=== PATIENT | male | born 1975 | race African-American/Black ===

== ENCOUNTER 2025-06-30 13:00 | Emergency (ER) | payer BC, SELFPAY ==
[2025-06-30] MEDS ORDERED: NA CHLORIDE 0.9% 1,000 ML ONE (13:10)
[2025-06-30 13:24] LABS: Absolute Lymphocytes (CBC) 1.8 K/uL (0.7-4.9); Hematocrit 43.1 % (39.6-49.0); Hemoglobin 14.3 g/dL (13.6-17.9); MCH 25.5 pg (27.0-35.0); MCHC 33.3 g/dL (32.0-36.0); MCV 76.7 fL (80-100); MPV 8.0 fL (7.6-11.3); Nucleated RBC Absolute Count 0.0 (0-0); Nucleated Red Blood Cells % 0.1 % (0-0); RBC Red Blood Cell Count 5.62 M/uL (4.33-5.43); White Blood Count 5.10 thou/uL (4.3-10.9)
[2025-06-30 13:47] LABS: ALT/SGPT 33 U/L (16-61); AST/SGOT 16 U/L (15-37); Albumin 4.0 g/dL (3.4-5.0); Albumin/Globulin Ratio 1.1 (1.1-1.8); Alkaline Phosphatase 42 U/L (45-117); Anion Gap 7.9 mEq/L (5.0-15.0); BUN Blood Urea Nitrogen 18 mg/dL (7-18); Globulin 3.7 g/dL (2.3-3.5); Glucose Level 147 mg/dL (74-106); Magnesium 2.2 mg/dL (1.6-2.4); NT PRO-BNP 28 pg/mL (<125); Potassium 3.9 mEq/L (3.5-5.1); Troponin High Sensitivity 9.6 pg/mL (<58.9)
[2025-06-30 13:48] LABS: Bilirubin Indirect, Calculated 0.1 mg/dL (0.2-0.8)
--- NOTE | 2025-06-30 13:50 | RAD REPORT ---
EXAMINATION: ONE VIEW CHEST XR CLINICAL INDICATION: syncope TECHNIQUE: Frontal chest projection is submitted. Examination is limited by patient positioning and t echnique. COMPARISON: No prior exam. FINDINGS: The lungs are mildly emphysematous but clear. The heart is upper limit of normal in size. No displace d fractures identified. IMPRESSION: No acute intrathoracic abnormalities.
--- NOTE | 2025-06-30 14:21 | EDPHYS ---
Physician Documentation [facility] Name: You Baird Age: 50 yrs Sex: Male : 1975 Arrival Date: 06/30/2025 Time: 13:00 Bed 3 Private MD: ED Physician Jorgito Diaz HPI: 06/30 13:42 Chief Complaint: Passed out during blood draw. History of Present Illness: The patient jr11 passed out while having blood drawn at a doctor's office. This was during a routine blood work procedure. The patient did not fall or hit their head, and they have never experienced passing out before. They had not eaten prior to the appointment but did drink a little water. The patient is currently feeling fine and has never felt like passing out during previous blood draws. Review of Systems: - Positive: Passed out during blood draw. - Negative: No head injury, no prior episodes of syncope, no feeling of fainting during previous blood draws. - ROS otherwise negative. . Historical: - Allergies: 13:07 No Known Allergies; nh2 - Home Meds: 13:07 None [Active]; nh2 - PMHx: 13:07 None; nh2 - PSHx: 13:07 None; nh2 - Immunization history:: Adult Immunizations up to date. - Infectious Disease History:: Denies. - Social history:: Smoking status: Patient denies any tobacco usage or history of. Patient/guardian denies using tobacco products. Exam: 13:42 Constitutional: This is a well developed, well nourished patient who is awake, alert, jr11 and in no acute distress. Head/Face: Normocephalic, atraumatic. Eyes: Extra-ocular motions intact. Lids and lashes normal. Conjunctiva and sclera are non-icteric and not injected. Cornea within normal limits. Periorbital areas with no swelling, redness, or edema. Neck: Trachea midline, no thyromegaly or masses palpated, and no cervical lymphadenopathy. Supple, full range of motion without nuchal rigidity, or vertebral point tenderness. No Meningismus. Chest/axilla: Normal chest wall appearance and motion. Nontender with no deformity. No lesions are appreciated. Cardiovascular: Regular rate and rhythm with a normal S1 and S2. No gallops, murmurs, or rubs. Normal PMI, no JVD. No pulse deficits. Respiratory: Lungs have equal breath sounds bilaterally, clear to auscultation and percussion. No rales, rhonchi or wheezes noted. No increased work of breathing, no retractions or nasal flaring. Abdomen/GI: Soft, non-tender, with normal bowel sounds. No distension or tympany. No guarding or rebound. No evidence of tenderness throughout. Skin: Warm, dry with normal turgor. Normal color with no rashes, no lesions, and no evidence of cellulitis. MS/ Extremity: Pulses equal, no cyanosis. Neurovascular intact. Full, normal range of motion. Neuro: Awake and alert, GCS 15, oriented to person, place, time, and situation. No gross motor or sensory deficits. Vital Signs: 13:01 BP 136 / 83; Pulse 60; Resp 18; Temp 97.6(TE); Pulse Ox 100% on R/A; Weight 84.37 kg; nh2 Height 6 ft. 0 in. ; 13:22 BP 126 / 77; Pulse 58; Resp 16; ll1 14:27 BP 117 / 73; Pulse 51; Resp 17; ll1 13:01 Body Mass Index 25.23 (84.37 kg, 182.88 cm) nh2 MDM: 13:07 Medical Screening Exam initiated jr11 13:42 Differential Diagnosis: no trauma Medical Decision Makin. Vasovagal syncope: Highly jr11 likely due to the circumstances of the blood draw and patient's description. 2. Dehydration: Possible contributing factor since the patient did not eat before the appointment. 3. Hypoglycemia: Less likely given the current fine feeling, but possible due to fasting. 4. Cardiac arrhythmia: Less likely but life-threatening; should be ruled out through EKG. Plan: - Perform EKG to assess cardiac function. - Conduct blood work to check for anemia and other potential causes of syncope. - Administer a liter of IV fluids. - Monitor patient and reassess after interventions. . ED course: EKG interpreted by me shows sinus bradycardia, normal axis, normal intervals, no acute ST changes.. 14:19 ED course: Pt ambulating no difficulty, no dizziness. 06/30 13:08 Order name: Basic Metabolic Panel; Complete Time: 13:53 06/30 13:08 Order name: CBC with Diff; Complete Time: 13:53 06/30 13:08 Order name: LFT's; Complete Time: 13:53 06/30 13:08 Order name: Magnesium; Complete Time: 13:53 06/30 13:08 Order name: NT PRO-BNP; Complete Time: 13:53 06/30 13:08 Order name: Troponin HS; Complete Time: 13:53 06/30 13:08 Order name: XRAY Chest (1 view); Complete Time: 13:53 06/30 13:08 Order name: EKG; Complete Time: 13:09 06/30 13:08 Order name: Cardiac monitoring; Complete Time: 13:16 06/30 13:08 Order name: EKG - Nurse/Tech; Complete Time: 13:16 06/30 13:08 Order name: IV Saline Lock; Complete Time: 13:09 06/30 13:08 Order name: Labs collected and sent; Complete Time: 13:09 06/30 13:08 Order name: O2 Per Protocol; Complete Time: 13:06/30 13:08 Order name: O2 Sat Monitoring; Complete Time: 13:09 Administered Medications: 13:16 Drug: NS 0.9% IV 1000 ml IV at 1000 ml once; to be given as a bolus over 60 minutes hb Route: IV; Rate: 1000 ml; Site: right antecubital; 14:28 Follow up: Response: No adverse reaction; IV Status: Completed infusion; IV Intake: ll1 1000ml Point of Care Testin:28 pre hospital WNL ll1 Ranges: Critical Glucose Levels:Adult <50 mg/dl or >400 mg/dl <40 mg/dl or >180 mg/dl Disposition Summary: 06/30/25 14:20 Discharge Ordered Notes: Location: Home jr11 Condition: Stable jr11 Diagnosis - Vasovagal syncope jr11 Discharge Instructions: - Discharge Summary Sheet jr11 - Dehydration, Adult jr11 - Vasovagal Syncope, Pediatric jr11 Forms: - Medication Reconciliation Form jr11 - Antibiotic Education jr11 - Prescription Opioid Use jr11 - Patient Portal Instructions jr11 - Leadership Thank You Letter jr11 Signatures: Dispatcher [employer] Zara Chew RN RN Gillian Kim RN RN [facility] Emily, Jorgito, MD MD jr11 Brendan Jr, Conner, RN RN nh2
--- NOTE | 2025-06-30 14:21 | ER ---
Nurse's Notes [facility] Name: You Baird Age: 50 yrs Sex: Male : 1975 Arrival Date: 06/30/2025 Time: 13:00 Bed 3 Private MD: Diagnosis: Vasovagal syncope Presentation: 06/30 13:00 Method Of Arrival: EMS: [facility] nh2 13:01 Chief complaint:. Chief complaint: Chief complaint: Patient states: reports having a nh2 near syncope episode while getting blood drawn at PCP. Coronavirus screen: At this time, the client does not indicate any symptoms associated with coronavirus-19. Ebola Screen: No symptoms or risks identified at this time. Initial Sepsis Screen: Does the patient meet any 2 criteria? No. Patient's initial sepsis screen is negative. Does the patient have a suspected source of infection? No. Patient's initial sepsis screen is negative. Risk Assessment: Do you want to hurt yourself or someone else? Patient reports no desire to harm self or others. Onset of symptoms was June 30, 2025 at 12:30. 13:01 Acuity: RAFAT 3 nh2 Historical: - Allergies: 13:07 No Known Allergies; nh2 - Home Meds: 13:07 None [Active]; nh2 - PMHx: 13:07 None; nh2 - PSHx: 13:07 None; nh2 - Immunization history:: Adult Immunizations up to date. - Infectious Disease History:: Denies. - Social history:: Smoking status: Patient denies any tobacco usage or history of. Patient/guardian denies using tobacco products. Screenin:21 [facility] ED Fall Risk Assessment (Adult) History of falling in the last 3 months, ll1 including since admission No falls in past 3 months (0 pts) Confusion or Disorientation No (0 pts) Intoxicated or Sedated No (0 pts) Impaired Gait No (0 pts) Mobility Assist Device Used No (0 pt) Altered Elimination No (0 pt) Score/Fall Risk Level 0 - 2 = Low Risk Maintained a safe environment, Hourly rounding (assess needs \T\ fall precautionary measures) done. Abuse screen: Denies threats or abuse. Nutritional screening: No deficits noted. Tuberculosis screening: No symptoms or risk factors identified. Assessment: 13:16 Reassessment: No changes from previously documented assessment. Patient and/or family hb updated on plan of care and expected duration. Pain level reassessed. Patient is alert, oriented x 3, equal unlabored respirations, skin warm/dry/pink. 13:20 General: Appears in no apparent distress. Behavior is calm, cooperative, appropriate ll1 for age. Pain: Denies pain. Neuro: Level of Consciousness is awake, alert, obeys commands, Oriented to person, place, time, situation, Appropriate for age [employer] are equal bilaterally Moves all extremities. Full function Gait is steady, Reports near syncope event while drawing blood at doctors office. Cardiovascular: Rhythm is regular. 14:27 Reassessment: No changes from previously documented assessment. Patient and/or family ll1 updated on plan of care and expected duration. Pain level reassessed. Patient is alert, oriented x 3, equal unlabored respirations, skin warm/dry/pink. Vital Signs: 13:01 BP 136 / 83; Pulse 60; Resp 18; Temp 97.6(TE); Pulse Ox 100% on R/A; Weight 84.37 kg; nh2 Height 6 ft. 0 in. ; 13:22 BP 126 / 77; Pulse 58; Resp 16; ll1 14:27 BP 117 / 73; Pulse 51; Resp 17; ll1 13:01 Body Mass Index 25.23 (84.37 kg, 182.88 cm) nh2 ED Course: 13:01 Patient arrived in ED. nh2 13:01 Jorgito Diaz MD is Attending Physician. jr11 13:01 Arm band placed on Patient placed in an exam room, on a stretcher. ll1 13:06 Triage completed. nh2 13:08 Gillian Kim RN is Primary Nurse. ll1 13:08 Initial lab(s) drawn, by hi, sent to lab. Inserted saline lock: 22 gauge in right ll1 antecubital area, using aseptic technique. Blood collected. Flushed with 10 mL NS. 13:21 Patient has correct armband on for positive identification. Bed in low position. ll1 Provided Education on: ER procedures and process. 13:22 Warm blanket given. ll1 13:39 XRAY Chest (1 view) In Process Unspecified. EDMS 14:27 No provider procedures requiring assistance completed. IV discontinued, intact, ll1 bleeding controlled, No redness/swelling at site. Pressure dressing applied. Administered Medications: 13:16 Drug: NS 0.9% IV 1000 ml IV at 1000 ml once; to be given as a bolus over 60 minutes hb Route: IV; Rate: 1000 ml; Site: right antecubital; 14:28 Follow up: Response: No adverse reaction; IV Status: Completed infusion; IV Intake: ll1 1000ml Medication: 14:28 VIS not applicable for this client. ll1 Point of Care Testin:28 pre hospital WNL ll1 Ranges: Intake: 14:28 IV: 1000ml; Total: 1000ml. ll1 Outcome: 14:20 Discharge ordered by MD. butler 14: Discharged to home ambulatory, [facility] 14:27 Condition: stable 14:27 Discharge instructions given to patient, family, Instructed on discharge instructions, follow up and referral plans. Demonstrated understanding of instructions, follow-up care, : Patient left the ED. 1 Signatures: Dispatcher [employer] EDMS Zara Wilks RN RN Gillian Kim RN RN 1 Jorgito Diaz MD MD jr11 Conner Cardona Jr, RN RN nh2 Corrections: (The following items were deleted from the chart) 13: 13:01 Chief complaint: nh2 nh2 13: 13:01 Chief complaint: Patient states: reports having a syncope episode while getting nh2 blood drawn at PCP nh2 13:30 13:01 Method Of Arrival: EMS nh2 nh2
[2025-06-30 14:41] VITALS: TEMP 97.6; O2SAT 100
[2025-06-30 14:44] VITALS: BP 117/73
== END 2025-06-30 14:28 | disposition home or self-care (01) ==
LOC: ER 13:00
DX: R55 Syncope and collapse (principal)
CPT/HCPCS: 85025; 80048; 36415; 83735; 80076; 84484; 83880; 71045; 96360; 99284; J7030; 93005